=== PATIENT | female | born 1990 | race Caucasian/White ===

== ENCOUNTER 2017-01-26 13:01 | Outpatient (CLI) | payer OTHER ==
[~2017-01-26] VITALS: Ht 152.4 cm; Wt 83.6 kg
[2017-01-26 13:13] VITALS: BP 118/68
[2017-01-26 14:11] LABS: BLOOD UREA NITROGEN 3 mg/dL (7-18)
[2017-01-26 14:15] LABS: ASPARTATE AMINO TRANSFERASE 18 U/L (15-37)
== END 2017-01-26 15:25 | disposition home or self-care (01) ==
LOC: LDOP 13:01
PROVIDERS: ATTEND Obstetrics & Gynecology
DX: O26.893 Other specified pregnancy related conditions, third trimester (principal); R10.10 Upper abdominal pain, unspecified; Z3A.31 31 weeks gestation of pregnancy
CPT/HCPCS: 36415; 59025; 80053; 83690; 85025; 99211; G0463

== ENCOUNTER 2017-04-01 17:19 | Outpatient (CLI) | payer OTHER ==
[2017-04-01] MEDS ORDERED: MEPERIDINE/PF 100 MG/ML ONE (21:10)
[2017-04-01] MEDS ORDERED: PROMETHAZINE 25 MG/ML, 1ML ONE (21:10)
[2017-04-01] MEDS ORDERED: MEPERIDINE/PF 100 MG/ML IM ONE (21:30)
[2017-04-01] MEDS ORDERED: PROMETHAZINE 25 MG/ML, 1ML IM ONE (21:30)
== END 2017-04-01 21:35 | disposition home or self-care (01) ==
LOC: LDOP 17:19
PROVIDERS: ATTEND Obstetrics & Gynecology
DX: O26.893 Other specified pregnancy related conditions, third trimester (principal); O62.9 Abnormality of forces of labor, unspecified; O48.0 Post-term pregnancy; R10.9 Unspecified abdominal pain; Z3A.40 40 weeks gestation of pregnancy
CPT/HCPCS: 59025; 99211; J2175; J2550; G0463

== ENCOUNTER 2017-04-02 12:13 | Inpatient (IN) | payer OTHER ==
[~2017-04-02] VITALS: Ht 152.4 cm; Wt 87.0 kg
[2017-04-02] MEDS ORDERED: LIDOCAINE 1%, 20ML ONE (12:29)
[2017-04-02] MEDS ORDERED: MISOPROSTOL 200 MCG TABLET ONE (12:29)
[2017-04-02] MEDS ORDERED: NEWBORN KIT ONE (12:29)
[2017-04-02] MEDS ORDERED: OXYTOCIN 30U/ 0.9% NaCL 500ML 500 ML ONE (12:30)
[2017-04-02] MEDS ORDERED: OXYTOCIN 30U/ 0.9% NaCL 500ML 500 ML IV PRN (12:32)
[2017-04-02] MEDS ORDERED: OXYTOCIN 30U/ 0.9% NaCL 500ML 500 ML IV ONE (12:32)
[2017-04-02] MEDS ORDERED: ONDANSETRON 2MG/ML, 2ML IVPush PRN ×2 (13:00→16:00)
[2017-04-02] MEDS ORDERED: FENTANYL PF 100 MCG/2ML IVPush PRN (13:00)
[2017-04-02] MEDS ORDERED: FENTANYL PF 100 MCG/2ML IV PRN (13:00)
[2017-04-02] MEDS ORDERED: PLEASE ENTER HEIGHT AND WEIGHT MC SCH (13:00)
[2017-04-02 13:09] LABS: HEMATOCRIT 35.8 % (34.6-47.8)
[2017-04-02] MEDS: LACTATED RINGERS 1,000 ML IV SCH ×2 (13:20→19:00)
[2017-04-02] MEDS ORDERED: FENTANYL PF 100 MCG/2ML ONE (14:48)
[2017-04-02] MEDS ORDERED: BUPIVACAINE 0.25% ONE (14:48)
[2017-04-02] MEDS ORDERED: FENTANYL/BUPIV./NS/PF 250 ML EPIDCONT ONE (14:48)
[2017-04-02] MEDS ORDERED: LIDOCAINE/PF 1.5%-EPI 1:200K, 30ML ONE (14:53)
[2017-04-02] MEDS ORDERED: FENTANYL/BUPIV./NS/PF 250 ML EPIDCONT SCH ×2 (15:38)
[2017-04-02] MEDS ORDERED: LACTATED RINGERS 1,000 ML IV SCH ×2 (15:38)
[2017-04-02] MEDS ORDERED: LACTATED RINGERS 1,000 ML IVBOLUS PRN ×2 (16:00)
[2017-04-02] MEDS ORDERED: EPHEDRINE 50 MG/ML, 1ML IVPush PRN (16:00)
[2017-04-02] MEDS: D5%-LACTATED RINGERS 1,000 ML IV SCH ×2 (20:05→20:32)
[2017-04-03] MEDS ORDERED: ONDANSETRON 2MG/ML, 2ML ONE (01:33)
[2017-04-03] MEDS ORDERED: LACTATED RINGERS 1,000 ML INTUTE SCH (02:30)
[2017-04-03] MEDS ORDERED: LACTATED RINGERS 1,000 ML INTUTE PRN (02:30)
[2017-04-03] MEDS ORDERED: METOCLOPRAMIDE 5 MG/ML, 2ML ONE ×2 (05:04→08:32)
[2017-04-03] MEDS ORDERED: SODIUM CITRATE/CITRIC ACID 30 ML UDC ONE ×2 (05:04→08:32)
[2017-04-03] MEDS ORDERED: LIDOCAINE 1%, 20ML ONE (07:40)
[2017-04-03] MEDS ORDERED: MISOPROSTOL 200 MCG TABLET ONE (07:40)
[2017-04-03] MEDS ORDERED: OXYTOCIN 30U/ 0.9% NaCL 500ML 500 ML IV SCH (08:25)
[2017-04-03] MEDS ORDERED: LACTATED RINGERS 1,000 ML IV SCH (08:25)
[2017-04-03] MEDS ORDERED: LIDOCAINE/MPF 2%-EPI 1:200K, 20 ML ONE (08:25)
[2017-04-03] MEDS ORDERED: SODIUM CITRATE/CITRIC ACID 30 ML UDC PO ONE (08:30)
[2017-04-03] MEDS ORDERED: LACTATED RINGERS 1,000 ML IVBOLUS ONE (08:30)
[2017-04-03] MEDS ORDERED: METOCLOPRAMIDE 5 MG/ML, 2ML IV ONE (08:30)
[2017-04-03] MEDS ORDERED: OXYTOCIN 10 UNITS/ML, 1ML ONE ×2 (08:32)
[2017-04-03] MEDS ORDERED: CEFAZOLIN 1,000 MG ONE (08:32)
[2017-04-03] MEDS: LACTATED RINGERS 1,000 ML IV SCH ×4 (09:34→19:34)
[2017-04-03] MEDS: OXYTOCIN 30U/ 0.9% NaCL 500ML 500 ML IV SCH ×2 (09:34→19:34)
[2017-04-03] MEDS ORDERED: CARBOPROST TROMETHAMINE 250 MCG/ML, 1ML IM PRN (10:00)
[2017-04-03] MEDS ORDERED: CALCIUM CARBONATE 500 MG TAB.CHEW PO PRN (10:00)
[2017-04-03] MEDS ORDERED: MISOPROSTOL 200 MCG TABLET PR PRN (10:00)
[2017-04-03] MEDS ORDERED: SIMETHICONE 80 MG CHEW TAB PO PRN (10:00)
[2017-04-03] MEDS ORDERED: ONDANSETRON 2MG/ML, 2ML IV PRN (10:00)
[2017-04-03] MEDS ORDERED: IBUPROFEN 600 MG TABLET PO PRN (10:00)
[2017-04-03] MEDS ORDERED: METHYLERGONOVINE 0.2 MG/ML IM PRN (10:00)
[2017-04-03] MEDS ORDERED: AZITHROMYCIN 500 MG in SODIUM CHLORIDE 0.9% 250 ML IV ONE (10:00)
[2017-04-03] MEDS ORDERED: OXYcodone 5 MG/5 ML ORAL.SOL UDC ONE (10:00)
[2017-04-03] MEDS ORDERED: OXYcodone 5 MG/5 ML ORAL.SOL UDC PO ONE (10:30)
[2017-04-03 12:30] VITALS: BP 132/77
[2017-04-03] MEDS: OXYcodone/APAP 5/325MG TABLET PO PRN ×3 (13:10→23:10)
[2017-04-03] MEDS: KETOROLAC 30 MG/1 ML IV SCH ×2 (14:17→20:47)
[2017-04-03 17:00] VITALS: BP 123/75
[2017-04-03 17:09] LABS: HEMATOCRIT 28.2 % (34.6-47.8); HEMOGLOBIN 9.3 g/dL (11.7-16.4); WHITE BLOOD COUNT 20.8 x10^3/uL (3.4-10)
[2017-04-03 17:30] LABS: DIFF TOTAL CELLS COUNTED 100 CELL DIFF
[2017-04-03 17:31] LABS: VERIFY COUNTS? YES
[2017-04-03] MEDS: DOCUSATE 100 MG CAPSULE PO PRN (20:47)
[2017-04-03 21:15] VITALS: BP 120/68
[2017-04-04 00:31] VITALS: BP 113/70
[2017-04-04] MEDS: LACTATED RINGERS 1,000 ML IV SCH ×5 (00:46→16:47)
[2017-04-04] MEDS: KETOROLAC 30 MG/1 ML IV SCH ×4 (02:20→21:09)
[2017-04-04] MEDS: OXYTOCIN 30U/ 0.9% NaCL 500ML 500 ML IV SCH ×2 (05:34→15:34)
[2017-04-04 06:50] VITALS: BP 119/77
[2017-04-04] MEDS: DOCUSATE 100 MG CAPSULE PO PRN ×2 (08:08→21:09)
[2017-04-04] MEDS: PRENATAL VIT/IRON/FA 1 EACH TABLET PO SCH (08:12)
[2017-04-04] MEDS: OXYcodone/APAP 5/325MG TABLET PO PRN ×2 (12:43→21:09)
[2017-04-04 21:10] VITALS: BP 146/82
[2017-04-05 00:30] VITALS: BP 118/73
[2017-04-05] MEDS: OXYTOCIN 30U/ 0.9% NaCL 500ML 500 ML IV SCH ×2 (01:34→03:49)
[2017-04-05] MEDS: LACTATED RINGERS 1,000 ML IV SCH ×2 (01:34→03:47)
[2017-04-05] MEDS: KETOROLAC 30 MG/1 ML IV SCH ×2 (03:41→08:00)
[2017-04-05 06:45] VITALS: BP 112/69
[2017-04-05] MEDS ORDERED: ACETAMINOPHEN 325 MG TABLET PO PRN (09:00)
[2017-04-05] MEDS: DOCUSATE 100 MG CAPSULE PO PRN (09:09)
[2017-04-05] MEDS: PRENATAL VIT/IRON/FA 1 EACH TABLET PO SCH (09:10)
[2017-04-05] MEDS ORDERED: DOCU-131 PO (10:00)
[2017-04-05] MEDS ORDERED: OXYC-302 PO (10:01)
[2017-04-05] MEDS ORDERED: IBUP-1223 PO (10:01)
[2017-04-05] MEDS ORDERED: FERR-36 PO (10:02)
== END 2017-04-05 13:29 | disposition home or self-care (01) | DRG 766 ==
LOC: LDOP 12:13 → LDIP 12:39 → 2NW 04-03 11:32
PROVIDERS: ADMIT Specialist; ATTEND Specialist
PROC: 10D00Z1 Extraction of Products of Conception, Low, Open Approach (ICD-10-PCS; principal; 2017-04-03)
DX: O77.0 Labor and delivery complicated by meconium in amniotic fluid (principal); E28.2 Polycystic ovarian syndrome; G89.29 Other chronic pain; O76 Abnormality in fetal heart rate and rhythm complicating labor and delivery; Z37.0 Single live birth; Z3A.40 40 weeks gestation of pregnancy; Z88.6 Allergy status to analgesic agent; O90.81 Anemia of the puerperium; D64.9 Anemia, unspecified
CPT/HCPCS: 36415; 82803; 85025; 86850; 86900; 88300; J0456; J0690; J1885; J3490; J2590; J2765; J3010; J7050; J7120; J7121

== ENCOUNTER 2017-08-19 10:20 | Emergency (ER) | payer OTHER ==
[~2017-08-19] VITALS: Ht 152.4 cm; Wt 84.9 kg
[~2017-08-19 10:20] MED LIST: DOCU-131 PO; FERR-51 PO; IBUP-1223 PO; OXYC-302 PO
[2017-08-19] MEDS ORDERED: birth control PO (11:50)
[2017-08-19] MEDS ORDERED: KETOROLAC 30 MG/1 ML IM ONE (14:00)
[2017-08-19] MEDS ORDERED: MAALOX/HYOSCYAMINE/LIDOCAINE 45 ML BTL PO ONE (14:00)
[2017-08-19] MEDS ORDERED: MAALOX/HYOSCYAMINE/LIDOCAINE 45 ML BTL ONE (14:02)
[2017-08-19] MEDS ORDERED: KETOROLAC 30 MG/1 ML ONE (14:02)
[2017-08-19 14:17] VITALS: BP 124/79
== END 2017-08-19 14:26 | disposition home or self-care (01) ==
LOC: ED 12:25
DX: R04.2 Hemoptysis (principal)
CPT/HCPCS: 36415; 71046; 85379; 93005; 96372; 99285; J1885